=== PATIENT | male | born 1955 | race Caucasian/White ===

== ENCOUNTER 2020-03-23 20:38 | Observation (INO) | payer BC, MEDICARE ==
--- NOTE | 2020-03-23 20:52 | EDM.PDOC ---
ED HPI GENERAL MEDICAL PROBLEM - General Chief Complaint: Neurological Problem Stated Complaint: [facility] Time Seen by Provider: 03/23/20 20:45 Source of Information: Reports: Patient, EMS, Family History Limitations: Reports: Other (no old records) - History of Present Illness INITIAL COMMENTS - FREE TEXT/NARRATIVE: 64 yo male from [place], [place] was brought in by EMS for a first time self-limited generalized seizure. When EMS arrived he was just starting to come around to the point that he could speak. There was a post-ictal period after the seizure where he was not responding. says he has not felt well this week with one episode of vomiting and some minor HAMMOND's that he has treated with acetaminophen. His past hx is remarkable for HTN, hyperlipidemia, depression, and GERD. Did have some ETOH tonight(?6) and per has several most nights. says he has had some diarrhea for a couple days. Onset: Today, Sudden Onset Date: 03/23/20 Duration: Minutes:, Resolved Prior to Arrival Location: Reports: Generalized Quality: Reports: Ache (associated with a mild HAMMOND over the past few days to a week. ) Severity: Mild (HAMMOND) Improves with: Reports: Other (seizure resolved with time alone.) Worsens with: Reports: Other (unknown ) Context: Reports: Other (See HPI) Associated Symptoms: Reports: Confusion (in the post-ictal phase), Headaches (over the past several days, not severe. ), Nausea/Vomiting (earlier in the week. ), Seizure (first seizure just before arrival. ). Denies: Fever/Chills Treatments MANAGER AGRICULTURAL: Reports: Other (see below) (none) - Related Data Allergies Allergy/AdvReac Type Severity Reaction Status Date / Time No Known Allergies Allergy Verified 03/23/20 20:46 Home Meds: Home Meds Ascorbic Acid [Vitamin C] 1,000 mg PO DAILY 03/23/20 [History] Aspirin 325 mg PO DAILY 03/23/20 [History] Escitalopram Oxalate 5 mg PO DAILY 03/23/20 [History] Losartan [Cozaar] 50 mg PO DAILY 03/23/20 [History] Metoprolol Succinate [Toprol XL 50mg] 50 mg PO DAILY 03/23/20 [History] Multivitamin with Minerals [Multivitamins with Minerals] 1 each PO DAILY 03/23/20 [History] NIFEdipine [Nifedipine ER] 30 mg PO BEDTIME 03/23/20 [History] Niacin 1,000 mg PO BEDTIME 03/23/20 [History] [place]-3S/DHA/Epa/Fish Oil/D3 [Fish [place]-1-Vit D Softgel] 1 each PO DAILY 03/23/20 [History] Omeprazole 20 mg PO BID 03/23/20 [History] atorvaSTATin [Lipitor] 40 mg PO DAILY 03/23/20 [History] diphenhydrAMINE [Benadryl] 25 mg PO BEDTIME 03/23/20 [History] ED ROS GENERAL - Review of Systems Review Of Systems: See Below Constitutional: Reports: No Symptoms HEENT: Reports: No Symptoms Respiratory: Reports: No Symptoms Cardiovascular: Reports: No Symptoms Endocrine: Reports: No Symptoms GI/Abdominal: Reports: Diarrhea (a couple days worth), Nausea (recent days), Stool Incontinence (associated with the seizure only), Vomiting ( a couple days ago). Denies: Black Stool, Constipation : Reports: Incontinence (associated with the seizure only). Denies: Dysuria, Flank Pain, Frequency, Hematuria, Urgency, Urinary Retention Musculoskeletal: Reports: No Symptoms Skin: Reports: No Symptoms Neurological: Reports: Confusion (briefly after his seizure), Headache (mild over the past up to a week. ), Seizure (first seizure today, generalized per .) Psychiatric: Reports: Depression (mild, chronic(on meds for this)) - Physical Exam Exam: See Below Exam Limited By: No Limitations General Appearance: Alert, WD/WN, No Apparent Distress Eye Exam: Bilateral Eye: Normal Inspection Ears: Normal External Exam, Normal Canal, Hearing Grossly Normal, Normal TMs Nose: Normal Inspection, No Blood Throat/Mouth: Normal Inspection, Normal Lips, Normal Oropharynx, Normal Voice, No Airway Compromise. No: Evidence of Tongue Biting Head Exam: Atraumatic, Normocephalic Neck: Normal Inspection Respiratory/Chest: No Respiratory Distress, Lungs Clear, Normal Breath Sounds, No Accessory Muscle Use Cardiovascular: Regular Rate, Rhythm, No Edema GI/Abdominal: Normal Bowel Sounds, Soft, Non-Tender, No Distention, Other (incontinent of stool) (Male) Exam: Other (was incontinent) Neuro Exam (Abbreviated): Alert, Oriented, CN II-XII Intact, Normal Cognition, No Motor/Sensory Deficits Back Exam: Normal Inspection Extremities: Normal Inspection, Normal Range of Motion, Non-Tender, No Pedal Edema Psychiatric: Normal Affect, Normal Mood Skin Exam: Warm, Dry, Intact, Normal Color, No Rash Course - Vital Signs Text/Narrative:: Dr. Szymanski called @ 5h, will see in ER. Last Recorded V/S: Last Vital Signs Temp 36.1 C 03/23/20 20:45 Pulse 77 03/23/20 20:45 Resp 15 03/23/20 20:45 BP 99/46 L 03/23/20 20:45 Pulse Ox 94 L 03/23/20 20:50 - Orders/Labs/Meds Orders: Active Orders 24 hr Category Date Time Status Cardiac Monitoring [RC] .As Directed Care 03/23/20 20:42 Active UA W/MICROSCOPIC [URIN] Stat Lab 03/23/20 20:42 Ordered Magnesium Sulfate/Water [Magnesium Sulfate in Water Med 03/23/20 21:29 Active Premix] 2 gm Premix Bag 1 bag IV ONETIME NS + KCl 20mEq/L [Normal Saline with 20 mEq KCl] 1,000 Med 03/23/20 21:45 Active ml IV ASDIRECTED Potassium Chloride [KCL 20 MEQ in Water 100 ML] 20 meq Med 03/23/20 21:16 Active Premix Bag 1 bag IV ONETIME Medication Orders Potassium Chloride 20 meq/ (Premix) 100 mls @ 50 mls/hr IV ONETIME ONE Stop: 03/23/20 23:15 Last Admin: 03/23/20 21:22 Dose: 50 mls/hr Documented by: JAYLAN Magnesium Sulfate 2 gm/ Premix 50 mls @ 12.5 mls/hr IV ONETIME ONE Stop: 03/24/20 01:28 Last Admin: 03/23/20 21:37 Dose: 12.5 mls/hr Documented by: JAYLAN Potassium Chloride/Sodium Chloride (Normal Saline With 20 Meq Kcl) 1,000 mls @ 150 mls/hr IV ASDIRECTED AYALA Last Admin: 03/23/20 21:49 Dose: 150 mls/hr Documented by: JAYLAN Labs: Laboratory Tests 03/23/20 03/23/20 03/23/20 Range/Units 20:55 20:55 21:19 WBC 9.9 (4.5-11.0) K/uL RBC 4.04 L (4.30-5.90) M/uL Hgb 12.4 (12.0-15.0) g/dL Hct 37.8 L (40.0-54.0) % MCV 94 (80-98) fL MCH 31 (27-31) pg MCHC 33 (32-36) % Plt Count 255 (150-400) K/uL Sodium 141 (140-148) mmol/L Potassium 2.6 L* (3.6-5.2) mmol/L Chloride 104 (100-108) mmol/L Carbon Dioxide 22 (21-32) mmol/L Anion Gap 17.6 H (5.0-14.0) mmol/L BUN 15 (7-18) mg/dL Creatinine 1.0 (0.8-1.3) mg/dL Est Cr Clr Drug Dosing 73.65 mL/min Estimated GFR (MDRD) > 60 (>60) Glucose 108 H (74-106) mg/dL Calcium 7.4 L (8.5-10.1) mg/dL Magnesium 0.2 L (1.8-2.4) mg/dL Total Bilirubin 0.6 (0.2-1.0) mg/dL AST 26 (15-37) U/L ALT 29 (12-78) U/L Alkaline Phosphatase 49 (46-116) U/L Troponin I < 0.017 (0.000-0.056) ng/mL Total Protein 5.9 L (6.4-8.2) g/dL Albumin 3.2 L (3.4-5.0) g/dL Globulin 2.7 (2.3-3.5) g/dL Albumin/Globulin Ratio 1.2 (1.2-2.2) Meds: Medications Generic Name Dose Route Start Last Admin Trade Name Freq PRN Reason Stop Dose Admin Potassium Chloride 20 meq/ 100 mls @ 50 mls/hr 03/23/20 21:16 03/23/20 21:22 Premix IV 03/23/20 23:15 50 mls/hr ONETIME ONE Administration Magnesium Sulfate 2 gm/ Premix 50 mls @ 12.5 mls/hr 03/23/20 21:29 03/23/20 21:37 IV 03/24/20 01:28 12.5 mls/hr ONETIME ONE Administration Potassium Chloride/Sodium Chloride 1,000 mls @ 150 mls/hr 03/23/20 21:45 03/23/20 21:49 Normal Saline With 20 Meq Kcl IV 150 mls/hr ASDIRECTED AYALA Administration Discontinued Medications Generic Name Dose Route Start Last Admin Trade Name Erickq PRN Reason Stop Dose Admin Lidocaine HCl 2 ml 03/23/20 21:26 03/23/20 21:37 Xylocaine-Mpf 1% INJECT 03/23/20 21:27 2 ml ONETIME ONE Administration Magnesium Oxide 800 mg 03/23/20 21:29 03/23/20 21:37 Magnesium Oxide PO 03/23/20 21:30 800 mg ONETIME ONE Administration Potassium Chloride 20 meq 03/23/20 21:16 03/23/20 21:21 Potassium Chloride PO 03/23/20 21:17 20 meq ONETIME ONE Administration - Radiology Interpretation Free Text/Narrative:: CT head-IMPRESSION: No acute intracranial abnormality identified. YASMINE CARVALHO MD CT Results Date: 03/23/20 CT Results Time: 21:30 Departure - Departure Time of Disposition: 22:30 Disposition: Refer to Observation Condition: Fair Clinical Impression: Seizure, Hypomagnesemia, Hypokalemia, Hypoproteinemia, Alcohol ingestion Diarrhea Qualifiers: Diarrhea type: unspecified type Qualified Code(s): R19.7 - Diarrhea, unspecified - Discharge Information *PRESCRIPTION DRUG MONITORING PROGRAM REVIEWED*: Not Applicable *COPY OF PRESCRIPTION DRUG MONITORING REPORT IN PATIENT RAMON: Not Applicable Referrals: PCP,None [Primary Care Provider] - Forms: ED Department Discharge Sepsis Event Note (ED) - Focused Exam Vital Signs: Vital Signs Temp Pulse Resp BP Pulse Ox 03/23/20 20:50 94 L 03/23/20 20:45 36.1 C 77 15 99/46 L 88 L - My Orders Last 24 Hours: My Active Orders 03/23/20 20:42 Cardiac Monitoring [RC] .As Directed UA W/MICROSCOPIC [URIN] Stat 03/23/20 21:16 Potassium Chloride [KCL 20 MEQ in Water 100 ML] 20 meq Premix Bag 1 bag IV ONETIME 03/23/20 21:29 Magnesium Sulfate/Water [Magnesium Sulfate in Water Premix] 2 gm Premix Bag 1 bag IV ONETIME 03/23/20 21:45 NS + KCl 20mEq/L [Normal Saline with 20 mEq KCl] 1,000 ml IV ASDIRECTED - Assessment/Plan Last 24 Hours: My Active Orders 03/23/20 20:42 Cardiac Monitoring [RC] .As Directed UA W/MICROSCOPIC [URIN] Stat 03/23/20 21:16 Potassium Chloride [KCL 20 MEQ in Water 100 ML] 20 meq Premix Bag 1 bag IV ONETIME 03/23/20 21:29 Magnesium Sulfate/Water [Magnesium Sulfate in Water Premix] 2 gm Premix Bag 1 bag IV ONETIME 03/23/20 21:45 NS + KCl 20mEq/L [Normal Saline with 20 mEq KCl] 1,000 ml IV ASDIRECTED
[2020-03-23] MEDS ORDERED: NIFEdipine 30 MG Tab.ER PO ONE (21:00)
[2020-03-23] MEDS ORDERED: Potassium Chloride 10 MEQ Cap.ER PO ONE (21:16)
[2020-03-23] MEDS ORDERED: Potassium Chloride 20 MEQ in Premix Bag 1 BAG IV ONE (21:16)
[2020-03-23] MEDS ORDERED: Magnesium Oxide 400 MG Tab PO ONE (21:29)
[2020-03-23] MEDS ORDERED: Magnesium Sulfate/Water 2 GM in Premix Bag 1 BAG IV ONE (21:29)
--- NOTE | 2020-03-23 21:29 | CRLCT ---
INDICATION: first seizure CT HEAD WITHOUT CONTRAST TECHNIQUE: Multiple axial CT images were performed through the head without intravenous contrast administration. COMPARISON: No previous studies are currently available for comparison. FINDINGS: No acute intracranial hemorrhage is identified. No extra-axial collections are evident and there is no mass effect or midline shift. Ventricles are normal in size and configuration. Brain parenchyma appears normal with unremarkable prescott-white differentiation. Osseous structures are within normal limits and no fractures are seen. Included portions of the paranasal sinuses show scattered mild mucosal thickening. The mastoid air cells are normally aerated. IMPRESSION: No acute intracranial abnormality identified. YASMINE CARVALHO MD [facility] Dictated by: Manuel Carvalho MD @ 03/23/2020 21:27:47 (Electronically Signed)
[2020-03-23] MEDS ORDERED: NS + KCl 20mEq/L 1,000 ML IV SCH ×2 (21:45→23:05)
--- NOTE | 2020-03-23 22:47 | PCM.HP.2 ---
H&P History of Present Illness - General Date of Service: 03/23/20 Admit Problem/Dx: Admission Diagnosis/Problem Admission Diagnosis/Problem Syncope Source of Information: Patient, Family, Provider History Limitations: Reports: Altered Mental Status - History of Present Illness Initial Comments - Free Text/Narative: CC: passed out HPI: Bin presents to the emergency room today after passing out while eating supper with friends. He has no recollection of the event until after EMS arrived so history is gathered from his who witnessed the event. She reports that he suddenly had his eyes rolled back and he tipped over backwards. While on the floor he seemed to be flailing his arms and legs around. She is not quite sure if it was rhythmic or more disorganized. This episode lasted about a minute and then he laid on the floor and appeared to be sleeping. He s lept for about 20 minutes. Patient reports that he does recall the paramedics getting him strapped in and taken to the ambulance. His notes that he was confused but he is able to recall events fairly well. He says that he feels well at this time. No headache or blurry vision. No chest pain, shortness of breath or abdominal pain. No nausea. He did have difficulty with a headache as well as some nausea and vomiting this week. He also had diarrhea for 2 days. He does admit to drinking several alcoholic beverages throughout the afternoon and evening. He has not had any fevers and had been feeling well up until a few days ago. He does not have a history of seizures. Work-up in the emergency room revealed significant hypokalemia and hypomagnesemia. Vitals have all been stable. Patient is alert and interactive and everything seems to be normal other than his electrolytes. He is going to be admitted for observation and cardiac monitoring as well as electrolyte replacement. - Related Data Allergies/Adverse Reactions: Allergies Allergy/AdvReac Type Severity Reaction Status Date / Time No Known Allergies Allergy Verified 03/23/20 20:46 Home Medications: Home Meds Ascorbic Acid [Vitamin C] 1,000 mg PO DAILY 03/23/20 [History] Aspirin 325 mg PO DAILY 03/23/20 [History] Escitalopram Oxalate 5 mg PO DAILY 03/23/20 [History] Losartan [Cozaar] 50 mg PO DAILY 03/23/20 [History] Metoprolol Succinate [Toprol XL 50mg] 50 mg PO DAILY 03/23/20 [History] Multivitamin with Minerals [Multivitamins with Minerals] 1 each PO DAILY 03/23/20 [History] NIFEdipine [Nifedipine ER] 30 mg PO BEDTIME 03/23/20 [History] Niacin 1,000 mg PO BEDTIME 03/23/20 [History] [place]-3S/DHA/Epa/Fish Oil/D3 [Fish [place]-6-Vit D Softgel] 1 each PO DAILY 03/23/20 [History] Omeprazole 20 mg PO BID 03/23/20 [History] atorvaSTATin [Lipitor] 40 mg PO DAILY 03/23/20 [History] diphenhydrAMINE [Benadryl] 25 mg PO BEDTIME 03/23/20 [History] Past Medical History Cardiovascular History: Reports: CAD, High Cholesterol, Hypertension, PA, Stents Gastrointestinal History: Reports: Colon Polyp, GERD Psychiatric History: Reports: Depression Endocrine/Metabolic History: Reports: Obesity/BMI 30+ Oncologic (Cancer) History: Reports: Prostate, Other (See Below) Other Oncologic History: skin - Infectious Disease History Infectious Disease History: Reports: Chicken Pox, Influenza, Shingles - Past Surgical History Cardiovascular Surgical History: Reports: Coronary Artery Stent GI Surgical History: Reports: Appendectomy, Colonoscopy Male Surgical History: Reports: Prostatectomy Social & Family History - Family History Cardiac: Denies: CAD - Tobacco Use Smoking Status *Q: Current Every Day Smoker Years of Tobacco use: 49 Packs/Tins Daily: 1 - Caffeine Use Caffeine Use: Reports: Coffee - Alcohol Use Days Per Week of Alcohol Use: 7 Number of Drinks Per Day: 2 Total Drinks Per Week: 14 - Recreational Drug Use Recreational Drug Use: No H&P Review of Systems - Review of Systems: Review Of Systems: See Below Free Text/Narrative: A complete 12 point review of systems was obtained. Pertinent positives and negatives are noted in the history of present illness. All other systems were reviewed and were negative except as noted. Exam - Exam Exam: See Below - Vital Signs Vital Signs: Last Vital Signs Temp 36.1 C 03/23/20 20:45 Pulse 77 03/23/20 20:45 Resp 15 03/23/20 20:45 BP 99/46 L 03/23/20 20:45 Pulse Ox 94 L 03/23/20 20:50 Weight: 102.058 kg - Exam Quality Assessment: No: Supplemental Oxygen General: Alert, Oriented, Cooperative. No: Mild Distress HEENT: No: Conjunctiva Clear (mildly injected ), Mucosa Moist & [place] (dry), Scleral Icterus Neck: Supple, Trachea Midline Lungs: Clear to Auscultation, Normal Respiratory Effort Cardiovascular: Regular Rate, Regular Rhythm. No: Systolic Murmur GI/Abdominal Exam: Normal Bowel Sounds, Soft, Non-Tender, No Distention Extremities: No Pedal Edema. No: Increased Warmth Peripheral Pulses: 1+: Dorsalis Pedis (L), Dorsalis Pedis (R) Skin: Warm, Dry Neuro Extensive - Mental Status: Alert, Oriented x3, Nl Response to Commands Neuro Extensive - Motor, Sensory, Reflexes: No: Dysarthria, Abnormal Motor, Tremor Psychiatric: Alert, Normal Affect - Patient Data Lab Results Last 24 hrs: Laboratory Results - last 24 hr 03/23/20 03/23/20 03/23/20 Range/Units 20:55 20:55 21:19 WBC 9.9 (4.5-11.0) K/uL RBC 4.04 L (4.30-5.90) M/uL Hgb 12.4 (12.0-15.0) g/dL Hct 37.8 L (40.0-54.0) % MCV 94 (80-98) fL MCH 31 (27-31) pg MCHC 33 (32-36) % Plt Count 255 (150-400) K/uL Sodium 141 (140-148) mmol/L Potassium 2.6 L* (3.6-5.2) mmol/L Chloride 104 (100-108) mmol/L Carbon Dioxide 22 (21-32) mmol/L Anion Gap 17.6 H (5.0-14.0) mmol/L BUN 15 (7-18) mg/dL Creatinine 1.0 (0.8-1.3) mg/dL Est Cr Clr Drug Dosing 73.65 mL/min Estimated GFR (MDRD) > 60 (>60) Glucose 108 H (74-106) mg/dL Calcium 7.4 L (8.5-10.1) mg/dL Magnesium 0.2 L (1.8-2.4) mg/dL Total Bilirubin 0.6 (0.2-1.0) mg/dL AST 26 (15-37) U/L ALT 29 (12-78) U/L Alkaline Phosphatase 49 (46-116) U/L Troponin I < 0.017 (0.000-0.056) ng/mL Total Protein 5.9 L (6.4-8.2) g/dL Albumin 3.2 L (3.4-5.0) g/dL Globulin 2.7 (2.3-3.5) g/dL Albumin/Globulin Ratio 1.2 (1.2-2.2) Result Diagrams: 03/23/20 20:55 03/23/20 20:55 Imaging Impressions Last 24 hrs: Head CT-images personally reviewed-no mass, bleed or stroke. Normal head ct Sepsis Event Note - Evaluation Sepsis Screening Result: No Definite Risk - Focused Exam Vital Signs: Vital Signs Temp Pulse Resp BP Pulse Ox 03/23/20 20:50 94 L 03/23/20 20:45 36.1 C 77 15 99/46 L 88 L *Q Meaningful Use (ADM) - VTE Risk Assess *Q Each Risk Factor Represents 1 Point: Obesity ( BMI > 25 kg/m2) Total Score 1 Point Risk Factors: 1 Each Risk Factor Represents 2 Points: Age 60 - 74 Years Total Score 2 Point Risk Factors: 2 Each Risk Factor Represents 3 Points: None Total Score 3 Point Risk Factors: 0 Each Risk Factor Represents 5 Points: None Total Score 5 Point Risk Factors: 0 Venous Thromboembolism Risk Factor Score *Q: 3 - Problem List (1) Syncope SNOMED Code(s): 108799227 ICD Code: R55 - SYNCOPE AND COLLAPSE Status: Acute Current Visit: Yes Qualifiers: Syncope type: unspecified Qualified Code(s): R55 - Syncope and collapse (2) Hypomagnesemia SNOMED Code(s): 756886430 ICD Code: E83.42 - HYPOMAGNESEMIA Status: Acute Current Visit: Yes (3) Hypokalemia SNOMED Code(s): 98953782 ICD Code: E87.6 - HYPOKALEMIA Status: Acute Current Visit: Yes Problem List Initiated/Reviewed/Updated: Yes Orders Last 24hrs: Active Orders 24 hr Category Date Time Status Patient Status Manage Transfer [TRANSFER] Routine ADT 03/23/20 22:35 Active Cardiac Monitoring [RC] .As Directed Care 03/23/20 20:42 Active UA W/MICROSCOPIC [URIN] Stat Lab 03/23/20 20:42 Ordered Magnesium Sulfate/Water [Magnesium Sulfate in Water Med 03/23/20 21:29 Active Premix] 2 gm Premix Bag 1 bag IV ONETIME NS + KCl 20mEq/L [Normal Saline with 20 mEq KCl] 1,000 Med 03/23/20 21:45 Active ml IV ASDIRECTED Potassium Chloride [KCL 20 MEQ in Water 100 ML] 20 meq Med 03/23/20 21:16 Active Premix Bag 1 bag IV ONETIME Resuscitation Status Routine Resus Stat 03/23/20 22:37 Ordered Medication Orders Potassium Chloride 20 meq/ (Premix) 100 mls @ 50 mls/hr IV ONETIME ONE Stop: 03/23/20 23:15 Last Admin: 03/23/20 21:22 Dose: 50 mls/hr Documented by: JAYLAN Magnesium Sulfate 2 gm/ Premix 50 mls @ 12.5 mls/hr IV ONETIME ONE Stop: 03/24/20 01:28 Last Admin: 03/23/20 21:37 Dose: 12.5 mls/hr Documented by: JAYLAN Potassium Chloride/Sodium Chloride (Normal Saline With 20 Meq Kcl) 1,000 mls @ 150 mls/hr IV ASDIRECTED AYALA Last Admin: 03/23/20 21:49 Dose: 150 mls/hr Documented by: JAYLAN Assessment/Plan Comment:: ASSESSMENT AND PLAN - Syncope-could be related to hypoperfusion from an arrhythmia versus possibly a seizure. Not obviously 1 or the other. He does have significant electrolyte abnormalities which raises some concern for arrhythmia. He does have a history of a myocardial infarction about 15 years ago. No history of seizures though alcohol use could have lowered his seizure threshold. Seems to be normal at this time. Head CT was normal. No evidence for infection. -Cardiac monitoring -Optimize electrolytes Hypokalemia-impressive decrease in potassium at this time. Probably a combination of the poor intake and vomiting and diarrhea as well as alcohol use. He has received 40 mEq in the emergency room. -20 mEq IV x1 now -IV fluids with potassium -Recheck potassium at 2 AM and 8 AM -Supplement as indicated at both of those times Hypomagnesemia-profound reduction in magnesium probably related to his recent diarrhea. He has received 2 g in the emergency room. -Magnesium 2 g every 4 hours -Recheck in the morning Essential hypertension-blood pressure on the low side on arrival but improving and now normal. Maintenance issues - - DVT prophylaxis -mechanical - GI prophylaxis -Home PPI - Nutrition -regular diet - Roberts catheter -not indicated CODE STATUS -full code Admission justification -patient will be referred observation status for cardiac monitoring and electrolyte replacement Disposition -I would anticipate discharge home Primary care physician -[place] Yannick Szymanski M.D. - Mortality Measure Prognosis:: Good
[2020-03-23] MEDS ORDERED: LORazepam 2 MG/ML SDV IVPUSH PRN (23:05)
[2020-03-23] MEDS ORDERED: Melatonin 3 MG Tab PO PRN (23:05)
[2020-03-23] MEDS ORDERED: Ondansetron 4 MG Tab.DIS PO PRN (23:05)
[2020-03-23] MEDS ORDERED: Potassium Chloride 20 MEQ, Lidocaine 1% 2 ML in Sodium Chloride 0.9% 100 ML IV SCH (23:05)
[2020-03-23] MEDS ORDERED: Acetaminophen 325 MG Tab PO PRN (23:05)
[2020-03-23] MEDS ORDERED: Magnesium Hydroxide 400 MG/5 ML Susp 30 ML Cup PO PRN (23:05)
[2020-03-23] MEDS ORDERED: Ondansetron 4 MG/2 ML SDV IV PRN (23:05)
[2020-03-23] MEDS ORDERED: Potassium Chloride 100 ML ONE (23:51)
[2020-03-24] MEDS: Magnesium Sulfate/Water 2 GM in Premix Bag 1 BAG IV SCH ×3 (01:18→09:35)
[2020-03-24] MEDS ORDERED: Pantoprazole 40 MG Tab.CR PO SCH (07:30)
[2020-03-24] MEDS ORDERED: Aspirin 325 MG Tab.EC PO SCH (09:00)
[2020-03-24] MEDS ORDERED: Losartan 50 MG Tab PO SCH (09:00)
[2020-03-24] MEDS ORDERED: Metoprolol Succinate 50 MG Tab.ER PO SCH (09:00)
[2020-03-24] MEDS ORDERED: Potassium Chloride 20 MEQ Tab.ER PO ONE (09:00)
[2020-03-24] MEDS ORDERED: atorvaSTATin 20 MG Tab PO SCH (09:00)
[2020-03-24] MEDS ORDERED: Escitalopram 10 MG Tab PO SCH (09:00)
--- NOTE | 2020-03-24 09:26 | PCM.DCSUM1 ---
Discharge Summary - Hospital Course Brief History: 64-year-old male with history of essential hypertension, coronary artery disease who presented after an episode of syncope. He was admitted for observation and electrolyte replacement with a low potassium and low magnesium. Diagnosis: Stroke: No - Discharge Data Discharge Date: 03/24/20 Discharge Disposition: Home, Self-Care 01 Condition: Fair - Referral to Home Health Primary Care Physician: PCP None - Discharge Diagnosis/Problem(s) (1) Syncope SNOMED Code(s): 904191861 ICD Code: R55 - SYNCOPE AND COLLAPSE Status: Acute Qualifiers: Syncope type: unspecified Qualified Code(s): R55 - Syncope and collapse (2) Hypokalemia SNOMED Code(s): 91620476 ICD Code: E87.6 - HYPOKALEMIA Status: Acute (3) Hypomagnesemia SNOMED Code(s): 674369496 ICD Code: E83.42 - HYPOMAGNESEMIA Status: Acute - Patient Summary/Data Hospital Course: Bin presented to the emergency room after an episode of syncope. The patient d id have some seizure-like activity after he collapsed and had a period of unresponsiveness but it was not entirely clear if this was related to a seizure or hypoperfusion. Work-up in the emergency room revealed evidence for significant hypokalemia and hypomagnesemia. He was a little bit dehydrated. No evidence for infection. Head CT was unremarkable. Supplementation for both the low potassium and low magnesium was initiated in the emergency room and he was admitted for observation. Overnight there were no acute issues. We did see occasional PACs followed by a sinus pause but no significant dysrhythmias. His potassium and magnesium improved with aggressive supplementation. He is well hydrated and feeling well. Vital signs have all been stable. There has been no recurrence of the syncope during the hospital stay. Tolerated breakfast. At this point I think what makes the most sense is some sort of dysrhythmia given his significant electrolyte abnormalities. I think seizure seems much less likely but cannot be completely ruled out. Patient feels well and would like to go home at this point and I think he is safe now that his electrolytes are normal. He will be following up with his primary care in the near future. A Holter monitor or event monitor could be considered to monitor his heart rhythm. We did provide information about high potassium foods. - Patient Instructions Diet: Heart Healthy Diet Activity: As Tolerated, No Strenuous Activities (for the next couple of days) Driving: Do Not Drive (no driving today ) Showering/Bathing: May Shower Other/Special Instructions: 1. You were in the hospital for observation after an episode of syncope. We did discover that your potassium and magnesium levels were quite low and aggressively replaced these during the hospital stay. Your levels have improved significantly overnight and are both on the low side of the normal range. I have provided some information for foods that are high in potassium and you should consume these liberally for the next several days. The exact cause for your episode of syncope is not entirely clear. I am suspicious that you may have had an abnormal heart rhythm that decreased blood flow to your brain and caused the episode of syncope. You could talk to your primary care physician about being set up with a heart monitor to see if we can capture this. The rhythm likely occurred because of the very low potassium and magnesium levels and may not recur because the levels are now normal. I would recommend that you take it easy today and do not drive today. If you are feeling good and do not have any more episodes you may resume your usual activities over the next couple of days. 2. Continue your usual home medications as previously prescribed. 3. Follow-up with your primary care provider this week. - Discharge Plan *PRESCRIPTION DRUG MONITORING PROGRAM REVIEWED*: Not Applicable *COPY OF PRESCRIPTION DRUG MONITORING REPORT IN PATIENT RAMON: Not Applicable Home Medications: Home Meds Ascorbic Acid [Vitamin C] 1,000 mg PO DAILY 03/23/20 [History] Aspirin 325 mg PO DAILY 03/23/20 [History] Escitalopram Oxalate 5 mg PO DAILY 03/23/20 [History] Losartan [Cozaar] 50 mg PO DAILY 03/23/20 [History] Metoprolol Succinate [Toprol XL 50mg] 50 mg PO DAILY 03/23/20 [History] Multivitamin with Minerals [Multivitamins with Minerals] 1 each PO DAILY 03/23/20 [History] NIFEdipine [Nifedipine ER] 30 mg PO BEDTIME 03/23/20 [History] Niacin 1,000 mg PO BEDTIME 03/23/20 [History] [place]-3S/DHA/Epa/Fish Oil/D3 [Fish Urs-Dudpl-5-Vit D Softgel] 1 each PO DAILY 03/23/20 [History] Omeprazole 20 mg PO BID 03/23/20 [History] atorvaSTATin [Lipitor] 40 mg PO DAILY 03/23/20 [History] diphenhydrAMINE [Benadryl] 25 mg PO BEDTIME 03/23/20 [History] Oxygen Therapy Mode: Room Air Patient Handouts: Hypokalemia, Potassium Content of Foods, Syncope Referrals: PCP,None [Primary Care Provider] - (f/u with your primary care this week -follow-up hospital stay for syncope, low potassium and low magnesium) - Discharge Summary/Plan Comment DC Time >30 min.: No - Patient Data Vitals - Most Recent: Last Vital Signs Temp 37 C 03/24/20 08:00 Pulse 76 03/24/20 08:00 Resp 13 03/24/20 08:00 BP 136/82 03/24/20 08:00 Pulse Ox 99 03/24/20 08:00 Weight - Most Recent: 102.058 kg I&O - Last 24 hours: Intake & Output 03/23/20 03/24/20 03/24/20 22:59 06:59 14:59 Intake Total 1391 Output Total 2600 Balance -1209 Lab Results - Last 24 hrs: Laboratory Results - last 24 hr 03/23/20 03/23/20 03/23/20 Range/Units 20:55 20:55 21:19 WBC 9.9 (4.5-11.0) K/uL RBC 4.04 L (4.30-5.90) M/uL Hgb 12.4 (12.0-15.0) g/dL Hct 37.8 L (40.0-54.0) % MCV 94 (80-98) fL MCH 31 (27-31) pg MCHC 33 (32-36) % Plt Count 255 (150-400) K/uL Sodium 141 (140-148) mmol/L Potassium 2.6 L* (3.6-5.2) mmol/L Chloride 104 (100-108) mmol/L Carbon Dioxide 22 (21-32) mmol/L Anion Gap 17.6 H (5.0-14.0) mmol/L BUN 15 (7-18) mg/dL Creatinine 1.0 (0.8-1.3) mg/dL Est Cr Clr Drug Dosing 73.65 mL/min Estimated GFR (MDRD) > 60 (>60) Glucose 108 H (74-106) mg/dL Calcium 7.4 L (8.5-10.1) mg/dL Magnesium 0.2 L (1.8-2.4) mg/dL Total Bilirubin 0.6 (0.2-1.0) mg/dL AST 26 (15-37) U/L ALT 29 (12-78) U/L Alkaline Phosphatase 49 (46-116) U/L Troponin I < 0.017 (0.000-0.056) ng/mL Total Protein 5.9 L (6.4-8.2) g/dL Albumin 3.2 L (3.4-5.0) g/dL Globulin 2.7 (2.3-3.5) g/dL Albumin/Globulin Ratio 1.2 (1.2-2.2) Urine Color (YELLOW) Urine Appearance (CLEAR) Urine pH (5.0-8.0) Ur Specific [place] (1.008-1.030) Urine Protein (NEGATIVE) mg/dL Urine Glucose (UA) (NEGATIVE) mg/dL Urine Ketones (NEGATIVE) mg/dL Urine Occult Blood (NEGATIVE) Urine Nitrite (NEGATIVE) Urine Bilirubin (NEGATIVE) Urine Urobilinogen (0.2-1.0) EU/dL Ur Leukocyte Esterase (NEGATIVE) Urine RBC (0-5) Urine WBC (0-5) Ur Epithelial Cells Amorphous Sediment Urine Bacteria Urine Mucus 03/24/20 03/24/20 03/24/20 Range/Units 02:11 05:00 08:03 WBC (4.5-11.0) K/uL RBC (4.30-5.90) M/uL Hgb (12.0-15.0) g/dL Hct (40.0-54.0) % MCV (80-98) fL MCH (27-31) pg MCHC (32-36) % Plt Count (150-400) K/uL Sodium 146 (140-148) mmol/L Potassium 3.7 3.5 L (3.6-5.2) mmol/L Chloride 110 H (100-108) mmol/L Carbon Dioxide 27 (21-32) mmol/L Anion Gap 12.5 (5.0-14.0) mmol/L BUN 11 (7-18) mg/dL Creatinine 0.7 L (0.8-1.3) mg/dL Est Cr Clr Drug Dosing 105.21 mL/min Estimated GFR (MDRD) > 60 (>60) Glucose 113 H (74-106) mg/dL Calcium 7.6 L (8.5-10.1) mg/dL Magnesium 1.7 L D (1.8-2.4) mg/dL Total Bilirubin (0.2-1.0) mg/dL AST (15-37) U/L ALT (12-78) U/L Alkaline Phosphatase (46-116) U/L Troponin I (0.000-0.056) ng/mL Total Protein (6.4-8.2) g/dL Albumin (3.4-5.0) g/dL Globulin (2.3-3.5) g/dL Albumin/Globulin Ratio (1.2-2.2) Urine Color Yellow (YELLOW) Urine Appearance Clear (CLEAR) Urine pH 7.0 (5.0-8.0) Ur Specific [place] 1.015 (1.008-1.030) Urine Protein Negative (NEGATIVE) mg/dL Urine Glucose (UA) Negative (NEGATIVE) mg/dL Urine Ketones Negative (NEGATIVE) mg/dL Urine Occult Blood Negative (NEGATIVE) Urine Nitrite Negative (NEGATIVE) Urine Bilirubin Negative (NEGATIVE) Urine Urobilinogen 0.2 (0.2-1.0) EU/dL Ur Leukocyte Esterase Negative (NEGATIVE) Urine RBC 0-5 (0-5) Urine WBC 0-5 (0-5) Ur Epithelial Cells Rare Amorphous Sediment Not seen Urine Bacteria Few Urine Mucus Not seen Med Orders - Current: Current Medications Acetaminophen (Tylenol) 650 mg PO Q4H PRN PRN Reason: Pain (Mild 1-3)/fever Aspirin (Ecotrin) 325 mg PO DAILY [facility] Last Admin: 03/24/20 08:27 Dose: Not Given Documented by: Atorvastatin Calcium (Lipitor) 40 mg PO DAILY [facility] Last Admin: 03/24/20 08:27 Dose: Not Given Documented by: Escitalopram Oxalate (Lexapro) 5 mg PO DAILY [facility] Last Admin: 03/24/20 08:27 Dose: Not Given Documented by: Magnesium Sulfate 2 gm/ Premix 50 mls @ 12.5 mls/hr IV Q4H [facility] Stop: 03/25/20 02:01 Last Admin: 03/24/20 05:28 Dose: 12.5 mls/hr Documented by: Potassium Chloride/Sodium Chloride (Normal Saline With 20 Meq Kcl) 1,000 mls @ 125 mls/hr IV ASDIRECTED [facility] Last Admin: 03/24/20 03:44 Dose: 125 mls/hr Documented by: Lorazepam (Ativan) 0.5 mg IVPUSH Q4H PRN PRN Reason: Nausea/Vomiting Losartan Potassium (Cozaar) 50 mg PO DAILY [facility] Last Admin: 03/24/20 08:26 Dose: Not Given Documented by: Magnesium Hydroxide (Milk Of Magnesia) 30 ml PO Q12H PRN PRN Reason: Constipation Melatonin (Melatonin) 9 mg PO BEDTIME PRN PRN Reason: Sleep Last Admin: 03/24/20 01:35 Dose: 9 mg Documented by: Metoprolol Succinate (Toprol Xl) 50 mg PO DAILY [facility] Last Admin: 03/24/20 08:27 Dose: Not Given Documented by: Nifedipine (Procardia Xl) 30 mg PO BEDTIME [facility] Ondansetron HCl (Zofran) 4 mg IV Q6H PRN PRN Reason: Nausea/Vomiting Ondansetron HCl (Zofran Odt) 4 mg PO Q6H PRN PRN Reason: Nausea able to take PO [facility]op[facility]) [facility] Admin: 03/24/20 08:26 Dose: Not Given Documented by: Senna/Docusate Sodium (Senna Plus) 1 tab PO BID PRN PRN Reason: Constipation Discontinued Medications Potassium Chloride 20 meq/ (Premix) 100 mls @ 50 mls/hr IV ONETIME ONE Stop: 03/23/20 23:15 Last Admin: 03/23/20 21:22 Dose: 50 mls/hr Documented by: Magnesium Sulfate 2 gm/ Premix 50 mls @ 12.5 mls/hr IV ONETIME ONE Stop: 03/24/20 01:28 Last Admin: 03/23/20 21:37 Dose: 12.5 mls/hr Documented by: Potassium Chloride/Sodium Chloride (Normal Saline With 20 Meq Kcl) 1,000 mls @ 150 mls/hr IV ASDIRECTED [facility] Last Admin: 03/23/20 21:49 Dose: 150 mls/hr Documented by: Potassium Chloride 20 meq/Lidocaine HCl 2 ml/ Sodium Chloride 112 mls @ 50 mls/hr IV Q2H [facility] Stop: 03/24/20 01:04 Last Admin: 03/23/20 23:57 Dose: 50 mls/hr Documented by: Potassium Chloride (Kcl 20 Meq In Water 100 Ml) Confirm Administered Dose 100 mls @ as directed .ROUTE .STK-MED ONE Stop: 03/23/20 23:52 Last Admin: 03/23/20 23:56 Dose: Not Given Documented by: Lidocaine HCl (Xylocaine-Mpf 1%) 2 ml INJECT ONETIME ONE Stop: 03/23/20 21:27 Last Admin: 03/23/20 21:37 Dose: 2 ml Documented by: Lidocaine HCl (Xylocaine-Mpf 1%) Confirm Administered Dose 5 ml .ROUTE .STK-MED ONE Stop: 03/23/20 23:52 Last Admin: 03/23/20 23:56 Dose: Not Given Documented by: Magnesium Oxide (Magnesium Oxide) 800 mg PO ONETIME ONE Stop: 03/23/20 21:30 Last Admin: 03/23/20 21:37 Dose: 800 mg Documented by: Nifedipine (Procardia Xl) 30 mg PO ONETIME ONE Stop: 03/23/20 21:01 Last Admin: 03/23/20 23:34 Dose: 30 mg Documented by: Potassium Chloride (Potassium Chloride) 20 meq PO ONETIME ONE Stop: 03/23/20 21:17 Last Admin: 03/23/20 21:21 Dose: 20 meq Documented by: Potassium Chloride (Klor-Con M20) 40 meq PO ONETIME ONE Stop: 03/24/20 09:01 Last Admin: 03/24/20 08:56 Dose: 40 meq Documented by:
[2020-03-24] MEDS ORDERED: NIFEdipine 30 MG Tab.ER PO SCH (21:00)
== END 2020-03-24 10:49 | disposition home or self-care (01) ==
LOC: JP.ED 20:38 → JP.ICU 22:35
PROVIDERS: ADMIT Internal Medicine; ATTEND Internal Medicine
DX: R55 Syncope and collapse (principal); E87.6 Hypokalemia; E83.42 Hypomagnesemia; E87.1 Hypo-osmolality and hyponatremia; E78.5 Hyperlipidemia, unspecified; F32.9 Major depressive disorder, single episode, unspecified; E86.0 Dehydration; I25.2 Old myocardial infarction; K21.9 Gastro-esophageal reflux disease without esophagitis; I10 Essential (primary) hypertension; I25.10 Atherosclerotic heart disease of native coronary artery without angina pectoris; R19.7 Diarrhea, unspecified; F17.210 Nicotine dependence, cigarettes, uncomplicated; Z72.89 Other problems related to lifestyle; Z79.82 Long term (current) use of aspirin; Z79.899 Other long term (current) drug therapy
CPT/HCPCS: 36415; 70450; 80048; 80053; 81001; 83735; 84132; 84484; 85027; 96365; 96366; 96368; 99285; A9270; G0378; J2001; J3475; J3480; J7050